=== PATIENT | male | born 1965 | race Caucasian/White ===

== ENCOUNTER → 2019-07-14 15:55 | Outpatient (BNVA) | payer BC, SELFPAY | PROVIDERS: Family Provider Family Medicine; Referring Provider Family Medicine; Visit Provider Otolaryngology | DX: J34.2 Deviated nasal septum (principal); J34.3 Hypertrophy of nasal turbinates; J30.9 Allergic rhinitis, unspecified; H91.90 Unspecified hearing loss, unspecified ear; F17.210 Nicotine dependence, cigarettes, uncomplicated | CPT/HCPCS: 99213; 99214 ==

== ENCOUNTER 2019-12-06 20:00 | Emergency (ER) | payer BC, SELFPAY ==
[2019-12-06 20:21] VITALS: BP 121/52; PULSE 79; RESP 18; TEMP 38.1; O2SAT 95
--- NOTE | 2019-12-06 20:46 | XR_ITS ---
WS: [id number] XR chest 1V portable [id number] REASON FOR EXAM: fever FINDINGS: The cardiac silhouette upper limits of normal. The lung rodriguez are normally aerated. No pneumonia, pleural effusion, pulmonary edema, or mass effect . The hilum is and apices are normal. No osseous abnormalities. XR/XR chest 1V portable [id number] IMPRESSION: Negative chest for acute findings.
[2019-12-06 20:49] VITALS: BP 128/75; PULSE 94; RESP 18; TEMP 39.2; O2SAT 96
[2019-12-06 20:53] LABS: Hematocrit 36.8 % (42.0-52.0); Hemoglobin 12.5 g/dL (11.7-16.6); Mean Corpuscular Hemoglobin 36.1 pg (28.0-34.0); Mean Corpuscular Volume 106.4 fL (80-94); Mean Platelet Volume 11.3 fL (7.4-10.4); Nucleated Red Blood Cells % 0 %; Platelet Count 68 10^3/cmm (130-400); Positive M 1; Red Blood Count 3.46 10^6/uL (4.1-5.3); Red Cell Distribution Width 13.1 % (12.1-15.1); White Blood Count 2.3 10^3/uL (4.0-10.0)
[2019-12-06] MEDS: sodium chloride 0.9% 1,000 ML 999 ML IV (20:53)
--- NOTE | 2019-12-06 21:04 | W.ED.FEVER ---
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 He presents with a significant fever, body aches, malaise, headache for the last 3 days or so. He appears to be worse today than the days prior. No known sick contacts he has had several ticks on in the last few days. Minimal cough, no shortness of breath. No known exposure to COVID patients. No urinary symptoms. He has chronic diarrhea, no belly pain or vomiting. He has been noted to have some right ear drainage that smells at times. MD elicited complaint: fever, malaise and weakness Onset (ago): day(s) (3) Exacerbating factors: nothing Relieving factors: nothing Associated symptoms: Reports chills, extremity pain, headache(s), myalgias and stiffness; Deny abdominal pain, chest pain, confusion, dysuria, nasal congestion or short of breath Review of Systems Const: Reports: chills Eyes: Denies: change in vision or blurry vision ENMT: Denies: nasal congestion Card: Denies: chest pain Resp: Denies: dyspnea, productive cough, non-productive cough or wheezing GI: Denies: abdominal pain : Denies: difficulty urinating, dysuria, urinary frequency, urinary urgency or hematuria Musc: Reports: extremity pain Skin/Breast: Denies: rash, pruritus or erythema Neuro: Reports: headache(s); Denies: confusion Psych: Denies: anxiety PFSH ED PFSH: Family History Mother Cancer CAD (coronary artery disease) Diabetes Sister Cancer Diabetes Brother Cancer Father CAD (coronary artery disease) Diabetes Social History Smoking and tobacco status: current every day smoker cigarettes Quit status (tobacco): has tried quititng Alcohol intake: current Alcohol intake frequency: holidays/special occasions only Physical Exam Const: COMMON NORMALS: alert GENERAL APPEARANCE: well developed ORIENTATION/CONSCIOUSNESS: Yes awake, Yes oriented to person, Yes oriented to place and Yes oriented to time HENMT: COMMON NORMALS: normocephalic, Normal external nose present and moist oral mucous membranes HEAD & SCALP: normocephalic FACE & SINUS: normal facial exam NOSE: Normal external nose present and No nasal discharge present EXTERNAL AUDITORY CANAL: Abnormal EAC present EAC laterality: left Details: edema and otic discharge MOUTH: tongue normal TEETH & GINGIVA: no abnormal tooth and associated gingiva THROAT: posterior oropharynx normal; no peritonsillar mass Eye: COMMON NORMALS: Equal, round and reactive pupils present, EOMs intact bilaterally and conjunctivae normal EYELID: eyelids normal CONJUNCTIVA: Yes conjunctivae normal PUPIL: Yes Equal, round and reactive pupils present Neck/C-Spine: COMMON NORMALS: full ROM GENERAL: No tracheal deviation CERVICAL SPINE: Yes normal cervical lordosis, No Cervical spine tenderness and No step off deformity Chest: COMMONS NORMALS: normal inspection of the chest CHEST: Yes Symmetrical chest wall rise and No tenderness Resp: COMMON NORMALS: clear to auscultation bilaterally EFFORT & INSPECTION: No tachypneic, No respiratory distress, No retractions, No uses accessory muscles and No tracheal deviation AUSCULTATION: clear to auscultation bilaterally, no rhonchi, no wheezes and lung sounds not diminished Cardio: COMMON NORMALS: regular rate and regular rhythm RATE: regular rate RHYTHM: regular rhythm HEART SOUNDS: no murmurs PERIPHERAL PULSES: radial pulses present GI: INSPECTION: No abdominal distension AUSCULTATION: No Hyperactive bowel sounds present and No Hypoactive bowel sounds present PALPATION: No Tenderness to palpation present (GI), No Guarding due to palpation present (GI) and No Rigid due to palpation PERCUSSION: no dullness to percussion and no tympanic to percussion Neuro: SENSORIUM/ORIENTATION: Yes alert, Yes oriented to person, Yes oriented to place and Yes oriented to time Psych: COMMON NORMALS: mental status grossly normal and speech normal SPEECH: Yes normal speech Skin: COMMON NORMALS: no rashes or lesions noted GENERAL SKIN EXAM: no rashes or lesions noted Course Vital Signs: Vital signs: Vital Signs Temperature 102.5 F H 12/06/19 20:49 Pulse Rate 78 12/06/19 22:44 Respiratory Rate 18 12/06/19 22:44 Blood Pressure 125/78 12/06/19 22:44 Pulse Oximetry 98 12/06/19 22:44 MDM - Fever MDM Narrative: Medical decision making narrative: 54-year-old male with tick bites, muscle aches, headache, malaise, leukopenia, thrombocytopenia, and elevated liver enzymes. All signs point tick fever. Tick panel has been sent. He will be started on doxycycline. He is feeling better after fever is broken, and is gotten some IV fluid. He is normotensive. His heart rates under 100. His oxygen saturations are fine. His urinalysis does not reveal infection, and his chest x-ray is negative. He will be precautionary light tested for coronavirus as it can cause leukopenia as well and will be allowed home, as the patient would like to go home. He was offered admission, but since he is able to take on fluids orally and take his doxycycline he should do well Lab Data: Labs: Lab Results 12/06/19 12/06/19 12/06/19 Range/Units 20:45 20:45 20:45 WBC 2.3 L (4.0-10.0) 10^3/ uL RBC 3.46 L (4.1-5.3) 10^6/u L Hgb 12.5 (11.7-16.6) g/dL Hct 36.8 L (42.0-52.0) % MCV 106.4 H (80-94) fL MCH 36.1 H (28.0-34.0) pg MCHC 34.0 (30.0-36.0) g/dL RDW 13.1 (12.1-15.1) % Plt Count 68 L (130-400) 10^3/c mm MPV 11.3 H (7.4-10.4) fL Nucleated RBC % (a uto) 0 % Total Counted 100 (0-100) Atypical Lymphs % 1.0 (0-5) % Absolute Neutrophi ls 1.6 (1.4-6.5) 10^3/c mm Segmented Neutroph ils 44 % Abs Segm Neuts (Ma n) 1.0 L (1.6-7.1) 10/cmm Band Neutrophils 26.0 % Abs Band Neuts (Ma n) 0.6 (0.0-1.2) 10^3/c mm Absolute Lymphocyt es 0.5 L (1.2-3.4) 10^3/c mm Lymphocytes (Manua l) 20 % Monocytes (Manual) 4.0 % Absolute Monocytes 0.1 (0.1-0.6) 10^3/c mm Eosinophils (Manua l) 1 % Absolute Eosinophi ls 0.0 (0.0-0.7) 10^3/c mm Basophils (Manual) 1.0 % Absolute Basophils 0.0 (0.0-0.2) 10^3/c mm Metamyelocytes 2.0 % Myelocytes 1.0 % Nucleated RBCs # 0.0 /100WBC Platelet Estimate Decreased (Normal) Macrocytosis 1+ H Sodium 131 L (136-145) mmol/L Potassium 3.6 (3.5-5.1) mmol/L Chloride 94 L (98-107) mmol/L Carbon Dioxide 23 (22-29) mmol/L Anion Gap 17.6 (5-19) BUN 14 (6-20) mg/dL Creatinine 1.2 (0.7-1.2) mg/dL GFR Calculation 62.6 L (90-130) mL/min Glucose 148 H (65-115) mg/dL Calculated Osmolal ity 271 L (285-295) mOsm/k g Lactate 1.6 (0.5-2.2) mmol/L Calcium 8.4 L (8.5-10.5) mg/dL Total Bilirubin 0.8 (0.15-1.2) mg/dL AST 182 H (0-40) U/L ALT 115 H (0-41) U/L Alkaline Phosphata se 260 H (40-130) IU/L C-Reactive Protein (0.0-4.9) mg/L Total Protein 6.8 (6.6-8.7) g/dL Albumin 3.7 (3.5-5.2) g/dL Globulin 3.1 (1.3-4.6) g/dL Urine Color (Yellow) Urine Appearance (CLEAR) Urine pH (5-7) Ur Specific Gravit y (1.005-1.030) Urine Protein (Negative) Urine Glucose (UA) (Normal) Urine Ketones (Negative) Urine Blood (Negative) Urine Nitrate (Negative) Urine Bilirubin (NEGATIVE) Urine Urobilinogen (Negative) mg/dL Ur Leukocyte Fallon ase (Negative) Urine RBC (0-2) /hpf Urine WBC (0-5) /hpf Ur Squamous Epith Cells (0-5) Urine Bacteria (NONE) Hyaline Casts Urine Mucus 12/06/19 12/06/19 Range/Units 20:45 20:45 WBC (4.0-10.0) 10^3/ uL RBC (4.1-5.3) 10^6/u L Hgb (11.7-16.6) g/dL Hct (42.0-52.0) % MCV (80-94) fL MCH (28.0-34.0) pg MCHC (30.0-36.0) g/dL RDW (12.1-15.1) % Plt Count (130-400) 10^3/c mm MPV (7.4-10.4) fL Nucleated RBC % (a uto) % Total Counted (0-100) Atypical Lymphs % (0-5) % Absolute Neutrophi ls (1.4-6.5) 10^3/c mm Segmented Neutroph ils % Abs Segm Neuts (Ma n) (1.6-7.1) 10/cmm Band Neutrophils % Abs Band Neuts (Ma n) (0.0-1.2) 10^3/c mm Absolute Lymphocyt es (1.2-3.4) 10^3/c mm Lymphocytes (Manua l) % Monocytes (Manual) % Absolute Monocytes (0.1-0.6) 10^3/c mm Eosinophils (Manua l) % Absolute Eosinophi ls (0.0-0.7) 10^3/c mm Basophils (Manual) % Absolute Basophils (0.0-0.2) 10^3/c mm Metamyelocytes % Myelocytes % Nucleated RBCs # /100WBC Platelet Estimate (Normal) Macrocytosis Sodium (136-145) mmol/L Potassium (3.5-5.1) mmol/L Chloride (98-107) mmol/L Carbon Dioxide (22-29) mmol/L Anion Gap (5-19) BUN (6-20) mg/dL Creatinine (0.7-1.2) mg/dL GFR Calculation (90-130) mL/min Glucose (65-115) mg/dL Calculated Osmolal ity (285-295) mOsm/k g Lactate (0.5-2.2) mmol/L Calcium (8.5-10.5) mg/dL Total Bilirubin (0.15-1.2) mg/dL AST (0-40) U/L ALT (0-41) U/L Alkaline Phosphata se (40-130) IU/L C-Reactive Protein 98.7 H (0.0-4.9) mg/L Total Protein (6.6-8.7) g/dL Albumin (3.5-5.2) g/dL Globulin (1.3-4.6) g/dL Urine Color Dark yellow (Yellow) Urine Appearance Clear (CLEAR) Urine pH 5 (5-7) Ur Specific Gravit y 1.015 (1.005-1.030) Urine Protein Trace (Negative) Urine Glucose (UA) Norm (Normal) Urine Ketones 1+ H (Negative) Urine Blood 2+ H (Negative) Urine Nitrate Negative (Negative) Urine Bilirubin 1+ H (NEGATIVE) Urine Urobilinogen 4 H (Negative) mg/dL Ur Leukocyte Fallon ase Negative (Negative) Urine RBC 0-4 H (0-2) /hpf Urine WBC 0-4 H (0-5) /hpf Ur Squamous Epith Cells 0-4 H (0-5) Urine Bacteria Trace (NONE) Hyaline Casts Rare Urine Mucus Trace Discharge Plan Discharge Patient Disposition: Home, Self-Care Clinical Impression: Ehrlichiosis Condition: Stable Prescriptions: New doxycycline hyclate 100 mg capsule 100 mg PO BID 10 Days Qty: 20 RF: 0 [place] 7.5-325 mg tablet 1 tab PO Q6H PRN (Reason: pain) Qty: 10 RF: 0 No Action ibuprofen 200 mg tablet 400 mg PO .at bedtime RF: 0 Discharge Orders: Discharge Order (Routine); Ordered 12/06/19 Ordered By: Ruddy Walls Discharge Diet: Usual diet Discharge Activity: Increase activity as tolerated Patient Instructions: Fever - Adult Activity Restrictions/Additional Instructions: Return for continued fevers despite 3-4 doses of antibiotics, worsening mental status, worsening pain, headache, neck ache, etc. Return for vomiting liquids or medications or other concerning symptoms. Discharge Date/Time: 12/06/19 22:46 Coding Level of Care Code ED Business Development Recruiter for Rosy Fwd Exam Comprehensive
[2019-12-06 21:06] LABS: C Reactive Protein 98.7 mg/L (0.0-4.9)
[2019-12-06 21:07] LABS: Alanine Aminotransferase 115 U/L (0-41); Albumin Level 3.7 g/dL (3.5-5.2); Alkaline Phosphatase 260 IU/L (40-130); Anion Gap 17.6 (5-19); Aspartate Amino Transferase 182 U/L (0-40); Blood Urea Nitrogen 14 mg/dL (6-20); Calcium 8.4 mg/dL (8.5-10.5); Carbon Dioxide 23 mmol/L (22-29); Chloride 94 mmol/L (98-107); Globulin 3.1 g/dL (1.3-4.6); Glomerular Filtration Rate 62.6 mL/min (90-130); Glucose 148 mg/dL (65-115); Osmolality Calculated 271 mOsm/kg (285-295); Potassium 3.6 mmol/L (3.5-5.1); Sodium 131 mmol/L (136-145); Total Bilirubin 0.8 mg/dL (0.15-1.2); Total Protein 6.8 g/dL (6.6-8.7)
[2019-12-06] MEDS: ketorolac 30 mg/mL INJ IVP (21:07)
[2019-12-06 21:08] LABS: Add Urine Microscopic? YES; Bilirubin Urine 1+ (NEGATIVE); Blood Urine 2+ (Negative); Glucose Urine UA Norm (Normal); Ketones Urine 1+ (Negative); Lactate (Lactic Acid level) 1.6 mmol/L (0.5-2.2); Leukocyte Esterase Urine Negative (Negative); Nitrate Urine Negative (Negative); Protein Urine Trace (Negative); Specific Gravity, Urine 1.015 (1.005-1.030); Urine Appearance Clear (CLEAR); Urine Color Dark Yellow (Yellow); Urobilinogen Urine 4 mg/dL (Negative); pH Urine 5 (5-7)
[2019-12-06] MEDS: acetaminophen 500 mg Tablet 1000 MG PO (21:08)
[2019-12-06 21:11] LABS: Bacteria Urine TRACE; Hyaline Casts Urine RARE; Mucus Urine TRACE; RBC Urine 0-4 /hpf (0-2); Squamous Epithelial Cell Urine 0-4 (0-5); WBC Urine 0-4 /hpf (0-5)
[2019-12-06 21:12] LABS: Add Urine Culture? No
[2019-12-06 21:27] LABS: Slide Review Slide Review Perform
[2019-12-06 21:29] LABS: Absolute Neutrophil 1.6 10^3/cmm (1.4-6.5); Band Neutrophils Absolute 0.6 10^3/cmm (0.0-1.2); Eosinophils 1 %; Lymphocytes 20 %; Monocytes Absolute 0.1 10^3/cmm (0.1-0.6); Platelet Estimate Decreased (Normal); Total Cells Counted 100 (0-100)
[2019-12-06 21:30] LABS: Lymphocytes Absolute 0.5 10^3/cmm (1.2-3.4); Macrocytosis 1+
[2019-12-06 21:32] LABS: Segmented Neutrophils 44 %
[2019-12-06] MEDS: doxycycline 100 mg Tablet PO (22:32)
[2019-12-06 22:44] VITALS: BP 125/78; PULSE 78; RESP 18; O2SAT 98
[2019-12-08 19:26] LABS: Quest SARS-CoV-2 RNA NOT DETECTED (NOT DETECTED)
[2019-12-09 13:47] LABS: Lyme AB Screen <0.90 index
--- NOTE | 2019-12-13 15:33 | PC.NURSE ---
Pt contacted and notified of negative COVID screening.
[2019-12-15 06:52] LABS: RMSF IGG NOT DETECTED; RMSF IGM NOT DETECTED
[2019-12-15 06:53] LABS: E. Chaffeensis AB IGG <1:64; E. Chaffeensis AB IGM <1:20
== END 2019-12-06 22:46 | disposition home or self-care (01) ==
PROVIDERS: Nurse Practitioner Family; Emergency Provider Emergency Medicine
DX: A77.40 Ehrlichiosis, unspecified (principal); F17.210 Nicotine dependence, cigarettes, uncomplicated
CPT/HCPCS: 12345; 36415; 71045; 80053; 81001; 83605; 85007; 85025; 86140; 86618; 86666; 86757; 87040; 87635; 96361; 96374; 96375; 99283; 99284; J1885; J7030

== ENCOUNTER 2021-08-01 09:05 | Outpatient (CLI) | payer OTHER, SELFPAY ==
--- NOTE | 2021-08-01 09:12 | XR_ITS ---
WS: [id number] XR hip LT 2-3V wo/w pel* [id number] REASON FOR EXAM: BILATERAL HIP PAIN FINDINGS: No fracture or focal bone lesion. Mild/moderate narrowing of the left hip joint space. Mild/moderate subchondral sclerosis and marginal osteophytosis of the acetabulum. XR/XR hip LT 2-3V wo/w pel* [id number] IMPRESSION: Moderate changes of osteoarthritis in the left hip as above.
== END 2021-08-01 09:06 | disposition home or self-care (01) ==
LOC: RAD 09:09
PROVIDERS: PCP Family Medicine; Visit Provider Family Medicine
DX: M25.551 Pain in right hip (principal); M25.552 Pain in left hip
CPT/HCPCS: 73502

== ENCOUNTER → 2021-09-06 14:16 | Outpatient (BNVA) | payer OTHER, SELFPAY | PROVIDERS: PCP Family Medicine; Referring Provider Family Medicine; Visit Provider Specialist | DX: M25.552 Pain in left hip (principal) | CPT/HCPCS: 73502 ==

== ENCOUNTER 2021-09-14 06:00 | Outpatient (RCR) | payer OTHER, SELFPAY | END 2021-09-21 23:59 | disposition home or self-care (01) | LOC: SPT 06:00 | PROVIDERS: PCP Family Medicine; Referring Provider Specialist; Visit Provider Specialist | DX: M25.552 Pain in left hip (principal) | CPT/HCPCS: 97110; 97161 ==

== ENCOUNTER 2021-09-22 06:00 | Outpatient (RCR) | payer OTHER, SELFPAY | END 2021-10-16 12:10 | disposition home or self-care (01) | LOC: SPT 06:00 | PROVIDERS: PCP Family Medicine; Referring Provider Specialist; Visit Provider Specialist | DX: M25.552 Pain in left hip (principal) | CPT/HCPCS: 97110 ==

== ENCOUNTER 2021-10-18 13:02 | Outpatient (CLI) | payer OTHER, SELFPAY ==
--- NOTE | 2021-10-18 13:30 | CT_ITS ---
WS: [id number] CT TEMPORAL BONES TECHNIQUE: Noncontrast CT of the temporal bones with coronal and sagittal reformatted images. CLINICAL INFORMATION: granulation tissue present in right ear canal COMPARISON: CT temporal June 19, 2019 DLP: 375.[address] scans at [facility] use at least one of these dose optimization techniques: automated e xposure control; mA and/or kV adjustment per patient size (includes targeted exams where dose is matc hed to clinical indication); or iterative reconstruction. FINDINGS: Paranasal sinuses are well aerated. Mild mucosal thickening in the ethmoid air cells. Sphen oid sinuses are well aerated. LEFT mastoid air cells are well aerated. Mild mucosal thickening RIGHT mastoid air cells with slight chronic sclerosis RIGHT mastoid. RIGHT: Mild mucosal thickening RIGHT mastoid air cells. Slight thickening RIGHT tympanic membrane. Tiny evan unt of soft tissue thickening in the external auditory canal contiguous with the tympanic membrane. T his is improved compared to June 19, 2019. No evidence of erosive changes. Normal scutum. Ossicle s are normal in appearance. Middle ear is well aerated. Normal tegmen tympani. Semicircular canals an d cochlea are normal in appearance. Prussak's space is normal. Normal inner ear structures. Normal ve stibular aqueduct. Facial nerve recess is normal. LEFT: Mastoid air cells are well aerated. Normal external auditory canal. Ossicles are normal in appearance . Middle ear is well aerated. Normal tegmen tympani. Semicircular canals and cochlea are normal in ap pearance. Prussak's space is normal. Normal inner ear structures. Normal vestibular aqueduct. Facial nerve recess is normal. Cavernous carotid calcification.. CT/CT temporal bone wo con* [id number] IMPRESSION: 1. Tiny amount of soft tissue thickening along the dorsal external auditory ca nal contiguous with the tympanic membrane likely inflammatory. No underlying er osive changes. This appears improved compared to 2019. 2. Mild mucosal thickening RIGHT mastoid tip. 3. LEFT mastoid air cells well aerated. 4. No other significant findings.
== END 2021-10-18 13:03 | disposition home or self-care (01) ==
LOC: RAD 13:05
PROVIDERS: PCP Family Medicine; Visit Provider Otolaryngology
DX: H70.11 Chronic mastoiditis, right ear (principal)
CPT/HCPCS: 70480

== ENCOUNTER 2022-02-23 06:31 | Day surgery (SDC) | payer OTHER, SELFPAY ==
[2022-02-23 06:49] VITALS: BP 140/75; PULSE 79; RESP 18; TEMP 36.4; O2SAT 94
[2022-02-23] MEDS: sodium chloride 0.9% 1,000 ML 30 ML IV (07:01)
--- NOTE | 2022-02-23 07:02 | P.ANESASSM_ITS ---
Pre-Anesthetic Assessment Height/Weight: Height 1.7 m Weight 87.09 kg Temp Pulse Resp BP Pulse Ox O2 Del Method 97.5 F L 79 18 140/75 94 02/23/22 06:49 02/23/22 06:49 02/23/22 06:49 02/23/22 06:49 02/23/22 06:49 02/23/22 06:49 Preop Diagnosis: screening Operation Date: 02/23/22 07:30 Proposed Procedures p Colonoscopy 29151,Z12.11(Not Applicable) - Dakota Perez MD Familial anesthetic complications: none Was Beta Ryan taken within 24 hours: N/A Was Clonidine taken within 24 hours: N/A Last intake: Intake Last Liquid Date 02/22/22 Last Liquid Time 00:00 Last Solid Date 02/21/22 Last Solid Time 20:30 Social Alcohol (1x month) and Tobacco Airway Submandibular: within normal limits Cervical ROM: Other (cervical plate in place) Mallampati: Class II Dentition: full Pulmonary Chronic Obstructive Pulmonary Disease CV/HEM Hypertension None reported Hepatic None reported GI IBS Metabolic None reported Musc/skel None reported Neuropsych None reported Anesthetic Plan ASA status: 2 Anesthesia: MAC Medications/Allergies Home Medications Medication Instructions Recorded Confirmed Last Taken Type lisinopril 10 1 tab PO DAILY 08/22/21 02/23/22 Unknown History mg-hydrochlorothiazide 12.5 mg tablet cephalexin 500 mg capsule 500 mg PO TID 7 days #21 caps 02/17/22 02/23/22 Unkn own Rx Allergies Allergy/AdvReac Type Severity Reaction Status Date / Time sulfacetamide Allergy Intermediate Hives Verified 02/17/22 15:39 Sulfa (Sulfonamide Allergy Unknown Verified 02/17/22 15:39 Antibiotics) Current Medications Generic Name Dose Route Start Last Admin Trade Name Freq PRN Reason Stop Dose Admin Sodium Chloride 1,000 mls @ 30 mls/hr 02/23/22 06:45 02/23/22 07:01 Sodium Chloride 0.9% IV 02/24/22 06:44 30 mls/hr .Q24H JAIRO Administration PFSH Anesthesia Medical History Ear pain Ehrlichiosis Hearing loss History of carpal tunnel syndrome Tinnitus Surgical History History of hip replacement History of placement of ear tubes entered in error History of spinal surgery History of surgery on upper extremity History of tonsillectomy and adenoidectomy Family History Mother Cancer CAD (coronary artery disease) Diabetes Sister Cancer Diabetes Brother Cancer Father CAD (coronary artery disease) Diabetes Social History Smoking and tobacco status: current every day smoker (half pack a day 20+) cigarettes Quit status (tobacco): has tried quititng Alcohol intake: current Alcohol intake frequency: holidays/special occasions only Data Anesthesia Cardiac Studies: No Data to Display
--- NOTE | 2022-02-23 07:32 | P.HP_ITS ---
Providers/Chief Complaint Primary Care Provider: Dakota Perez MD Chief Complaint: SCREENING History of Present Illness Yovani Pimentel is a 56 year old male who presents for a screening colonoscopy. Review of Systems General: Reports: 10 or more systems reviewed and unremarkable except in HPI and below Const: Denies: fever(s) Card: Denies: chest pain or irregular heart rhythm Resp: Denies: dyspnea Medications/Allergies Home Medications Medication Instructions Recorded Confirmed Last Taken Type lisinopril 10 1 tab PO DAILY 08/22/21 02/23/22 Unknown History mg-hydrochlorothiazide 12.5 mg tablet cephalexin 500 mg capsule 500 mg PO TID 7 days #21 caps 02/17/22 02/23/22 Unknown Rx Allergies Allergy/AdvReac Type Severity Reaction Status Date / Time sulfacetamide Allergy Intermediate Hives Verified 02/17/22 15:39 Sulfa (Sulfonamide Allergy Unknown Verified 02/17/22 15:39 Antibiotics) PFSH PFSH: Medical History Ear pain Ehrlichiosis Hearing loss History of carpal tunnel syndrome Tinnitus Surgical History History of hip replacement History of placement of ear tubes entered in error History of spinal surgery History of surgery on upper extremity History of tonsillectomy and adenoidectomy Family History Mother Cancer CAD (coronary artery disease) Diabetes Sister Cancer Diabetes Brother Cancer Father CAD (coronary artery disease) Diabetes Social History Smoking and tobacco status: current every day smoker (half pack a day 20+) cigarettes Quit status (tobacco): has tried quititng Alcohol intake: current Alcohol intake frequency: holidays/special occasions only Vital Signs Vitals Signs: Last Vital Signs Temp 97.5 F L 02/23/22 06:49 Pulse 79 02/23/22 06:49 Resp 18 02/23/22 06:49 BP 140/75 02/23/22 06:49 Pulse Ox 94 02/23/22 06:49 O2 Del Method 02/23/22 06:49 Weight: Weight last 48 hrs Weight 192 lb Physical Exam Const: COMMON NORMALS: no acute distress and patient oriented x3 GENERAL APPEARANCE: cooperative, comfortable and well developed HENMT: COMMON NORMALS: normocephalic and moist oral mucous membranes HEAD & SCALP: normocephalic Chest: COMMONS NORMALS: normal inspection of the chest Resp: COMMON NORMALS: normal respiratory effort and clear to auscultation bilaterally AUSCULTATION: clear to auscultation bilaterally Cardio: COMMON NORMALS: regular rate, regular rhythm, No gallops present (Cardio), No murmurs present (Cardio) and No rub (Cardio) RATE: regular rate RHYTHM: regular rhythm Extremity: COMMON NORMALS: normal to inspection Neuro: COMMON NORMALS: patient oriented x3 and no focal motor deficits Skin: COMMON NORMALS: no rashes or lesions noted GENERAL SKIN EXAM: no rashes or lesions noted A&P Assessment and plan (1) Colon cancer screening: We will proceed with the colonoscopy. we discussed the risk of bleeding, Perforation, and sedation. The patient has no further questions and wished to proceed , Status: Acute Coding Level of Care Code Acute Reheater Helper for Bhumi Fwd Diagnoses Colon cancer screening Z12.11
[2022-02-23 08:10] VITALS: BP 98/54; PULSE 68; RESP 12; TEMP 36.1; O2SAT 93
[2022-02-23 08:30] VITALS: BP 118/63; PULSE 63; RESP 16; O2SAT 92
--- NOTE | 2022-02-24 09:01 | ANE.PACU2 ---
Inpatient post-anesthesia follow up: Airway intact: Yes Vital signs: Temperature 97.0 F Pulse Rate 63 Respiratory Rate 16 Blood Pressure 118/63 Pulse Oximetry 92 Oxygen Delivery Me thod Room Air Oxygen Flow Rate 2 Fraction of Inspir ed Oxygen Hydration adequate: Yes Nausea and vomiting: No Pain level: 1 Mental status: Baseline
== END 2022-02-23 08:38 | disposition home or self-care (01) ==
PROVIDERS: PCP Family Medicine; Visit Provider Family Medicine
PROC: 0DJD8ZZ Inspection of Lower Intestinal Tract, Via Natural or Artificial Opening Endoscopic (ICD-10-PCS; CPT 45378; principal; 2022-02-23 07:30)
DX: Z12.11 Encounter for screening for malignant neoplasm of colon (principal); D12.2 Benign neoplasm of ascending colon; D12.8 Benign neoplasm of rectum; I10 Essential (primary) hypertension; J44.9 Chronic obstructive pulmonary disease, unspecified; F17.210 Nicotine dependence, cigarettes, uncomplicated; Z88.2 Allergy status to sulfonamides
CPT/HCPCS: 12345; 45380; 45385; 88305; J2704; J7030

== ENCOUNTER 2022-11-02 01:54 | Emergency (ER) | payer OTHER, SELFPAY ==
--- NOTE | 2022-11-02 02:07 | XRR_ITS ---
PROCEDURE INFORMATION: Exam: XR Chest Exam date and time: 11/02/2022 2:21 AM Age: 57 years old Clinical indication: Injury or trauma; Crushing; Patient HX: Fall, cough TECHNIQUE: Imaging protocol: Radiologic exam of the chest. Views: 1 view. COMPARISON: CR XR chest 1V portable [id number] 12/06/2019 8:56 PM FINDINGS: Lungs: Unremarkable. No consolidation. Faint ground-glass opacities seen at apical peripheries on CT do not have a radiographic correlate. Pleural spaces: Unremarkable. No pleural effusion. No pneumothorax. Heart/Mediastinum: Unremarkable. No cardiomegaly. Bones/joints: No acute findings. XR/XR chest 1V portable [id number] IMPRESSION: No acute findings. Faint ground-glass opacities seen at apical peripheries on CT do not have a radiographic correlate.
--- NOTE | 2022-11-02 02:07 | CTR_ITS ---
PROCEDURE INFORMATION: Exam: CT Head Without Contrast Exam date and time: 11/02/2022 2:24 AM Age: 57 years old Clinical indication: Injury or trauma; Fall; Blunt trauma (contusions or hematomas); Consciousness not specified TECHNIQUE: Imaging protocol: Computed tomography of the head without contrast. Radiation optimization: All CT scans at this facility use at least one of these dose optimization techniques: automated exposure control; mA and/or kV adjustment per patient size (includes targeted exams where dose is matched to clinical indication); or iterative reconstruction. REPORTING DATA: Count of CT and Cardiac NM exams in prior 12 months: This patient has received 0 known CTs and 0 known cardiac nuclear medicine studies in the 12 months prior to the current study. COMPARISON: CT temporal bone wo con* [id number] 10/18/2021 1:11 PM RADIATION DOSE METRICS: Total DLP (mGy-cm): 1221.54 FINDINGS: Brain: Normal. No hemorrhage. Unremarkable white matter. No mass effect. Cerebral ventricles: No ventriculomegaly. Paranasal sinuses: Visualized sinuses are unremarkable. No fluid levels. Mastoid air cells: Visualized mastoid air cells are well aerated. Bones/joints: No acute findings. Soft tissues: Unremarkable. CT/CT head wo con* [id number] IMPRESSION: No acute intracranial abnormality.
--- NOTE | 2022-11-02 02:07 | CTR_ITS ---
PROCEDURE INFORMATION: Exam: CT Cervical Spine Without Contrast Exam date and time: 11/02/2022 2:27 AM Age: 57 years old Clinical indication: Injury or trauma; Fall; Blunt trauma; Prior surgery; Surgery date: 6+ months; Surgery type: Metal plate cervical TECHNIQUE: Imaging protocol: Computed tomography of the cervical spine without contrast. Radiation optimization: All CT scans at this facility use at least one of these dose optimization techniques: automated exposure control; mA and/or kV adjustment per patient size (includes targeted exams where dose is matched to clinical indication); or iterative reconstruction. REPORTING DATA: Count of CT and Cardiac NM exams in prior 12 months: This patient has received 0 known CTs and 0 known cardiac nuclear medicine studies in the 12 months prior to the current study. COMPARISON: CT head wo con* [id number] 11/02/2022 2:24 AM RADIATION DOSE METRICS: Total DLP (mGy-cm): 295.64 FINDINGS: Bones/joints: Anterior fusion hardware in place at C6-C7. No findings of hardware disruption. No acute bony findings. Lungs: Mild ground-glass opacities at peripheral aspects of lung apices are favored to be infectious/inflammatory . Soft tissues: Unremarkable. CT/CT cervical spin wo con* [id number] IMPRESSION: No acute bony findings.
--- NOTE | 2022-11-02 02:08 | ECG_ITS ---
[facility] Test Date: 2022-11-02 Pat Name: Yovani Pimentel Department: Room: Gender: Male [employer]: : 1965 Requested By: Ricardo Rocha Order Number: [id number] Mack MD: Alexis Ferrari M.D. Measurements Intervals [place] Rate: 70 P: 52 OR: 164 QRS: 48 QRSD: 83 T: 41 QT: 385 QTc: 416 Interpretive Statements SINUS RHYTHM WITH SINUS ARRHYTHMIA No previous ECG available for comparison Electronically Signed On 11-02-2022 11:57:20 CDT by Alexis Ferrari M.D. [email or web address]
[2022-11-02 02:10] VITALS: BP 139/77; PULSE 65; RESP 15; TEMP 36.5; O2SAT 96; BMI 34.4
--- NOTE | 2022-11-02 02:13 | W.ED.FALL ---
HPI - Fall General: Chief Complaint: Syncope Stated Complaint: Fall, Head injury (Nose) Time Seen by Provider: 11/02/22 01:57 Source: patient Mode of arrival: ambulatory Limitations: no limitations History of Present Illness: 57-year-old male states he woke up this morning was having a coughing fit he states that while coughing he passed out. He states that when he passed out he did hit his head on the carpet. He has abrasion to his nose and forehead complains of forehead nose and neck pain. He denies any shortness of breath denies any chest pain at this time. Associated symptoms-after fall: Reports headache(s) and neck pain; Denies abdominal pain or chest pain Review of Systems Const: Denies: fever(s) or chills Eyes: Denies: blurry vision or eye discomfort ENMT: Denies: throat pain or dental pain Card: Reports: syncope; Denies: chest pain Resp: Reports: non-productive cough; Denies: dyspnea GI: Denies: abdominal pain, nausea, vomiting or diarrhea : Denies: dysuria Musc: Reports: neck pain; Denies: back pain Skin/Breast: Denies: rash Neuro: Reports: headache(s) All/Imm: Denies: urticaria PFSH ED PFSH: Medical History Cough in adult Ear pain Ehrlichiosis Hearing loss History of carpal tunnel syndrome Tinnitus Surgical History History of hip replacement History of placement of ear tubes entered in error History of spinal surgery History of surgery on upper extremity History of tonsillectomy and adenoidectomy Family History Mother Cancer CAD (coronary artery disease) Diabetes Sister Cancer Diabetes Brother Cancer Father CAD (coronary artery disease) Diabetes Social History Smoking and tobacco status: current every day smoker (half pack a day 20+) cigarettes Quit status (tobacco): has tried quititng Alcohol intake: current Alcohol intake frequency: holidays/special occasions only Substance/Drug Use: never Physical Exam Const: COMMON NORMALS: no acute distress, patient oriented x3 and healthy appearing HENMT: COMMON NORMALS: normocephalic; head/scalp not atraumatic HEAD & SCALP: normocephalic; not atraumatic OTHER: abrasion to forehead and nose Eye: COMMON NORMALS: Equal, round and reactive pupils present and EOMs intact bilaterally PUPIL: Yes Equal, round and reactive pupils present Neck/C-Spine: COMMON NORMALS: full ROM and supple OTHER: tenderness over posterior neck Chest: COMMONS NORMALS: normal inspection of the chest and normal palpation of entire chest wall Resp: COMMON NORMALS: normal respiratory effort, No retractions, No use of accessory muscles and clear to auscultation bilaterally AUSCULTATION: clear to auscultation bilaterally Cardio: COMMON NORMALS: regular rate, regular rhythm and No murmurs present (Cardio) RATE: regular rate RHYTHM: regular rhythm GI: COMMON NORMALS: Normal to inspection, nondistended, normoactive bowel sounds present, Soft to palpation, non-tender and no masses PALPATION: Yes Soft to palpation Extremity: COMMON NORMALS: normal to inspection and full ROM Neuro: COMMON NORMALS: patient oriented x3, moves all extremities and no focal motor deficits Psych: COMMON NORMALS: mental status grossly normal, Normal thought process present and cooperative THOUGHT PROCESS: Normal thought process present Skin: COMMON NORMALS: no rashes or lesions noted and no wounds GENERAL SKIN EXAM: no rashes or lesions noted Course Vital Signs: Vital signs: Vital Signs Temperature 97.7 F 11/02/22 02:10 Pulse Rate 65 11/02/22 02:10 Respiratory Rate 15 11/02/22 02:10 Blood Pressure 139/77 11/02/22 02:10 Pulse Oximetry 96 11/02/22 02:10 Oxygen Delivery Me thod Room Air 11/02/22 02:10 MDM - Fall Medical Decision Making RecentPatient presents here after a syncopal event likely from coughing is a closed head injury CT shows no fractures or major head injury. For 2 to 3 weeks he is currently on steroids and antibiotics from his PCP I did inform him that if it does not improve with that he should talk to his PCP about stopping his lisinopril he understands agrees to plan. Medical Records I reviewed the patient's medical records. Lab Data I reviewed the patient's lab results. 11/02/22 02:14 11/02/22 02:14 Radiology Impressions Cervical Spine CT 11/02/22 02:07 IMPRESSION: No acute bony findings. Chest X-Ray 11/02/22 02:07 IMPRESSION: No acute findings. Faint ground-glass opacities seen at apical peripheries on CT do not have a radiographic correlate. Head CT 11/02/22 02:07 IMPRESSION: No acute intracranial abnormality. Face CT 11/02/22 02:42 IMPRESSION: No acute bony findings. Laboratory Results WBC 9.7 10^3/uL (4.0-10.0) 11/02/22 02:14 RBC 3.65 10^6/uL (4.1-5.3) L 11/02/22 02:14 Hgb 13.2 g/dL (11.7-16.6) 11/02/22 02:14 Hct 39.5 % (42.0-52.0) L 11/02/22 02:14 MCV 108.2 fl (80-94) H 11/02/22 02:14 MCH 36.2 pg (28.0-34.0) H 11/02/22 02:14 MCHC 33.4 g/dL (30.0-36.0) 11/02/22 02:14 RDW 12.7 % (12.1-15.1) 11/02/22 02:14 Plt Count 169 10^3/cmm (130-400) 11/02/22 02:14 MPV 10.0 fL (7.4-10.4) 11/02/22 02:14 Neut % (Auto) 44.8 % 11/02/22 02:14 Lymph % (Auto) 43.4 % 11/02/22 02:14 [place] % (Auto) 8.4 % 11/02/22 02:14 Eos % (Auto) 2.5 % 11/02/22 02:14 Baso % (Auto) 0.4 % 11/02/22 02:14 Neut # (Auto) 4.35 10^3/uL (1.8-7.7) 11/02/22 02:14 Lymph # (Auto) 4.2 10^3/uL (0.8-4.8) 11/02/22 02:14 [place] # (Auto) 0.8 10^3/uL (0.2-0.9) 11/02/22 02:14 Eos # (Auto) 0.2 10^3/uL (0.0-0.8) 11/02/22 02:14 Baso # (Auto) 0.0 10^3/uL (0.0-0.1) 11/02/22 02:14 Nucleated RBC % (auto) 0 % 11/02/22 02:14 Nucleated RBCs # 0.0 /100WBC 11/02/22 02:14 Sodium 138 mmol/L (136-145) 11/02/22 02:14 Potassium 3.5 mmol/L (3.5-5.1) 11/02/22 02:14 Chloride 101 mmol/L (98-107) 11/02/22 02:14 Carbon Dioxide 22 mmol/L (22-29) 11/02/22 02:14 Anion Gap 18.5 (5-19) 11/02/22 02:14 BUN 21 mg/dL (6-20) H 11/02/22 02:14 Creatinine 1.2 mg/dL (0.7-1.2) 11/02/22 02:14 GFR Calculation 62.0 mL/min (90-130) L 11/02/22 02:14 Glucose 118 mg/dL (65-115) H 11/02/22 02:14 Calculated Osmolality 290 mOsm/kg (285-295) 11/02/22 02:14 Calcium 8.7 mg/dL (8.5-10.5) 11/02/22 02:14 Total Bilirubin 0.2 mg/dL (0.15-1.2) 11/02/22 02:14 AST 16 U/L (0-40) 11/02/22 02:14 ALT 17 U/L (0-41) 11/02/22 02:14 Alkaline Phosphatase 94 U/L (40-130) 11/02/22 02:14 Total Protein 6.8 g/dL (6.6-8.7) 11/02/22 02:14 Albumin 4.1 g/dL (3.5-5.2) 11/02/22 02:14 Globulin 2.7 g/dL (1.3-4.6) 11/02/22 02:14 EKG Data EKG 1: I personally reviewed and interpreted this EKG as follows: EKG interpretation date: 11/02/22 EKG interpretation time: 02:13 Interpretation: nsr hr [address] or t wave abnormalities qrs 83 qtc 406 Discharge Plan Discharge Patient Disposition: Home Clinical Impression: Syncope, Closed head injury, Cough Condition: Stable Prescriptions: No Action lisinopril-hydrochlorothiazide 10-12.5 mg tablet 1 tab PO DAILY ciprofloxacin-dexamethasone [Ciprodex] 0.3-0.1 % drops,suspension 4 drp otic (ear) BID Qty: 7.5 0RF Rx Instructions: Apply 4 drops into right ear for 5 minutes twice daily. azithromycin 250 mg tablet See Rx Instructions PO .COMPLEX Qty: 6 0RF Rx Instructions: For 250 mg dose pack: take 500 mg today (day 1), then 250 mg for 4 days (days 2-5) PO prednisone 20 mg tablet 40 mg PO DAILY Qty: 10 0RF Discharge Orders: Discharge ED (Routine); Ordered 11/02/22 Ordered By: Ricardo Rocha Referrals: Dakota Perez MD [Primary Care Provider] - 1-3 days Discharge Diet: Advance as tolerated Discharge Activity: Resume usual activity Patient Instructions: Syncope (ED), Head Injury (ED) Coding Level of Care Code ED Inhalation Therapy Aides Teacher for Rosy Wilson
[2022-11-02 02:26] LABS: Basophils % 0.4 %; Eosinophils # 0.2 10^3/uL (0.0-0.8); Eosinophils % 2.5 %; Hematocrit 39.5 % (42.0-52.0); Hemoglobin 13.2 g/dL (11.7-16.6); Lymphocytes # 4.2 10^3/uL (0.8-4.8); Lymphocytes % 43.4 %; Mean Corpuscular HGB Conc 33.4 g/dL (30.0-36.0); Mean Corpuscular Hemoglobin 36.2 pg (28.0-34.0); Mean Corpuscular Volume 108.2 fl (80-94); Monocytes # 0.8 10^3/uL (0.2-0.9); Monocytes % 8.4 %; Neutrophils # 4.35 10^3/uL (1.8-7.7); Neutrophils % 44.8 %; Nucleated Red Blood Cells % 0 %; Platelet Count 169 10^3/cmm (130-400); Red Blood Count 3.65 10^6/uL (4.1-5.3); Red Cell Distribution Width 12.7 % (12.1-15.1); White Blood Count 9.7 10^3/uL (4.0-10.0)
--- NOTE | 2022-11-02 02:42 | CTR_ITS ---
PROCEDURE INFORMATION: Exam: CT Maxillofacial Without Contrast Exam date and time: 11/02/2022 2:54 AM Age: 57 years old Clinical indication: Injury or trauma; Fall; Blunt trauma (contusions or hematomas); Forehead and nose TECHNIQUE: Imaging protocol: Computed tomography of the face without contrast. Radiation optimization: All CT scans at this facility use at least one of these dose optimization techniques: automated exposure control; mA and/or kV adjustment per patient size (includes targeted exams where dose is matched to clinical indication); or iterative reconstruction. REPORTING DATA: Count of CT and Cardiac NM exams in prior 12 months: This patient has received 0 known CTs and 0 known cardiac nuclear medicine studies in the 12 months prior to the current study. COMPARISON: CT head wo con* [id number] 11/02/2022 2:24 AM RADIATION DOSE METRICS: Total DLP (mGy-cm): 612.15 FINDINGS: Orbital cavities: Orbits are normal. Globes are unremarkable. Bones/joints: No acute fracture. Paranasal sinuses: Mild paranasal sinus mucosal thickening. No evident free fluid. Soft tissues: Mild soft tissue swelling upper nasal region. CT/CT facial bones wo con* [id number] IMPRESSION: No acute bony findings.
[2022-11-02 02:48] LABS: Alanine Aminotransferase 17 U/L (0-41); Albumin Level 4.1 g/dL (3.5-5.2); Alkaline Phosphatase 94 U/L (40-130); Anion Gap 18.5 (5-19); Aspartate Amino Transferase 16 U/L (0-40); Blood Urea Nitrogen 21 mg/dL (6-20); Calcium 8.7 mg/dL (8.5-10.5); Carbon Dioxide 22 mmol/L (22-29); Chloride 101 mmol/L (98-107); Creatinine Clr Calc Pharmacy 74.6025; Globulin 2.7 g/dL (1.3-4.6); Glucose 118 mg/dL (65-115); Osmolality Calculated 290 mOsm/kg (285-295); Potassium 3.5 mmol/L (3.5-5.1); Sodium 138 mmol/L (136-145); Total Bilirubin 0.2 mg/dL (0.15-1.2); Total Protein 6.8 g/dL (6.6-8.7)
[2022-11-02 03:30] VITALS: BP 139/77; PULSE 64; RESP 19; O2SAT 96
== END 2022-11-02 03:31 | disposition home or self-care (01) ==
PROVIDERS: Emergency Provider Emergency Medicine; PCP Family Medicine
DX: R55 Syncope and collapse (principal); S09.8XXA Other specified injuries of head, initial encounter; R05.9 Cough, unspecified; W18.39XA Other fall on same level, initial encounter; S00.31XA Abrasion of nose, initial encounter; S00.81XA Abrasion of other part of head, initial encounter; F17.210 Nicotine dependence, cigarettes, uncomplicated
CPT/HCPCS: 70450; 70486; 71045; 72125; 80053; 85025; 93005; 99285

== ENCOUNTER 2022-11-30 10:33 | Outpatient (CLI) | payer OTHER, SELFPAY ==
--- NOTE | 2022-11-30 10:48 | USCV_ITS ---
Yovani Pimentel Age: 57 Gender: M : 1965 Exam Date: 11/30/2022 11:33 Ordering Phys: Alise Brooks Technologist: CT Exam Location: [facility]_ Indication: syncope BP: 147 / 71 HR: 63 Rhythm: Sinus Technical Quality: Adequate MEASUREMENTS (Male / Female) Normal Values 2D ECHO LV Diastolic Diameter PLAX 4.5 cm 4.2 - 5.9 / 3.9 - 5.3 cm LV Systolic Diameter PLAX 2.5 cm IVS Diastolic Thickness 0.9 cm 0.6 - 1.0 / 0.6 - 0.9 cm IVS Systolic Thickness 1.5 cm LVPW Diastolic Thickness 1.1 cm 0.6 - 1.0 / 0.6 - 0.9 cm LVPW Systolic Thickness 2.3 cm LVOT Diameter 2.1 cm LV Ejection Fraction 2D Teich 74.6 % LV Ejection Fraction MOD 2C 65.2 % LV Ejection Fraction 2C AL 64.8 % LA Diameter 4.5 cm Aorta at Sinotubular Diameter 2.6 cm IVC Diameter 1.5 cm M-MODE Aortic Annulus Diameter 3.3 cm LA Ao Ratio MM 1.4 MV E Point Septal Separation 0.5 cm DOPPLER AV Peak Velocity 166.0 cm/s LVOT Peak Velocity 101.0 cm/s AV Area Cont Eq vti 2.3 cm squared AV Area Cont Eq pk 2.1 cm squared MV Peak Velocity 137.0 cm/s MV Area PHT 2.4 cm squared Mitral E to A Ratio 1.1 MV E' Velocity 50.5 cm/s Mitral E to MV E' Ratio 11.1 Mitral E to LV E' Lateral Ratio 11.8 Mitral E to LV E' Septal Ratio 10.4 TR Peak Velocity 104.2 cm/s TR Peak Gradient 4.3 mmHg TR Mean Velocity 84.7 cm/s TR Mean Gradient 3.1 mmHg TR Velocity Time Integral 20.8 cm TV Peak E Velocity 79.0 cm/s Right Atrial Pressure 3.0 mmHg Pulmonary Artery Systolic Pressu 7.3 mmHg PV Peak Velocity 109.0 cm/s FINDINGS Left Ventricle Normal left ventricular size, systolic function and wall thickness, with no regional wall motion abnormalities. Left ventricular ejection fraction is estimated at 65 %. Normal diastolic function. Right Ventricle Normal right ventricular size and systolic function. RVSP could not be calculated due to incomplete tricuspid regurgitation velocity profile. Right Atrium Normal right atrial size. Left Atrium Normal left atrial size. Mitral Valve Moderate mitral annular calcification. No mitral valve stenosis. No mitral valve regurgitation. Aortic Valve Structurally normal trileaflet aortic valve. No aortic valve stenosis. No aortic valve regurgitation. Tricuspid Valve Structurally normal tricuspid valve. No tricuspid valve stenosis. No significant tricuspid valve regurgitation. Pulmonic Valve Structurally normal pulmonic valve. No pulmonary valve stenosis. Trace pulmonary valve regurgitation. Pericardium No pericardial effusion. Aorta Normal size aortic root and proximal ascending aorta. IVC Normal IVC dimension with >50% respiratory change of the inferior vena cava. CONCLUSIONS 1. Normal left ventricular size, systolic function and wall thickness, with no regional wall motion abnormalities. Left ventricular ejection fraction is estimated at 65 %. Normal diastolic function. 2. Normal right ventricular size and systolic function. 3. No prior similar studies to compare. Vicky Holt MD (Electronically Signed) Final Date: 06 December 2022 12:59 S
== END 2022-11-30 10:34 | disposition home or self-care (01) ==
PROVIDERS: PCP Family Medicine; Visit Provider Physician Assistant
DX: R55 Syncope and collapse (principal)
CPT/HCPCS: 93306

== ENCOUNTER 2023-04-15 17:01 | Outpatient (CLI) | payer OTHER, SELFPAY ==
--- NOTE | 2023-04-15 17:30 | CT_ITS ---
WS: [id number] CT TEMPORAL BONES TECHNIQUE: Noncontrast CT of the temporal bones with coronal and sagittal reformatted images. CLINICAL INFORMATION: ear infections COMPARISON: CT temporal 10/18/2021 DLP: 325.[address] scans at [facility] use at least one of these dose optimization techniques: automated e xposure control; mA and/or kV adjustment per patient size (includes targeted exams where dose is matc hed to clinical indication); or iterative reconstruction. FINDINGS: RIGHT: Progressed partial opacification of the mastoid air cells worse at the mastoid tip. Soft tissu e thickening involving the middle ear with subtotal opacification. Thickening and retraction of the t ympanic membrane. Soft tissue thickening involves the epitympanum, mesotympanum and hypotympanum. Scu temitope appears intact. Ossicles appear intact. Trace soft tissue thickening in Prussak's space. Tegmen t ympani appears intact. Slight dehiscence of the RIGHT superior semicircular canal. Semicircular canals and cochlea are other johnson normal in appearance. Normal inner ear structures. Normal vestibular aqueduct. Facial nerve rece ss is normal. LEFT: Mastoid air cells are well aerated. Normal external auditory canal. Ossicles are normal in appearance . Middle ear is well aerated. Normal tegmen tympani. Semicircular canals and cochlea are normal in ap pearance. Prussak's space is normal. Normal inner ear structures. Normal vestibular aqueduct. Facial nerve recess is normal. Cavernous carotid calcification. Mild mucosal thickening in the ethmoid air cells. Normal posterior nasopharynx. IMPRESSION: 1. Progressed partial opacification of the RIGHT mastoid air cells with sclerotic and erosive change s. 2. Subtotal opacification of the RIGHT middle ear with retraction and thickening of the tympanic mem brane. Scutum appears intact. Ossicles appear intact. Findings are likely infectious or inflammatory. 3. Slight dehiscence of the RIGHT superior semicircular canal 4. LEFT mastoid air cells appear well aerated. 5. No other acute findings.
== END 2023-04-15 17:02 | disposition home or self-care (01) ==
PROVIDERS: PCP Family Medicine; Visit Provider Otolaryngology
DX: H70.11 Chronic mastoiditis, right ear (principal); H66.3X1 Other chronic suppurative otitis media, right ear; H69.81 Other specified disorders of Eustachian tube, right ear
CPT/HCPCS: 70480

== ENCOUNTER → 2023-06-05 08:02 | Outpatient (BNVA) | payer SELFPAY | PROVIDERS: PCP Family Medicine; Visit Provider Specialist | DX: M25.551 Pain in right hip (principal); Z96.641 Presence of right artificial hip joint | CPT/HCPCS: 73502 ==

== ENCOUNTER 2023-07-08 08:34 | Outpatient (CLI) | payer OTHER, SELFPAY ==
--- NOTE | 2023-07-08 09:30 | NM_ITS ---
WS: [id number] NUCLEAR MEDICINE 3 PHASE BONE SCAN TECHNIQUE: Blood flow, blood pool and delayed skeletal imaging obtained. Radiopharmaceutical: 24.6 Tc-99m MDP mCi IV Injection site: Antecubital Postinjection imaging delay: 3 hr CLINICAL INFORMATION: hx of right total hip arthroplasty, post sx complications COMPARISON: Radiograph 06/05/2023 FINDINGS: Prior postoperative changes RIGHT PRISCILLA. Normal blood flow and blood pool images. No evidence of osteom yelitis. No evidence of RIGHT PRISCILLA hardware loosening. Degenerative type uptake involving both AC joints. No other suspicious findings. Soft tissue contours: Normal. Kidneys: Normal. Other findings: None. IMPRESSION: 1. Prior postoperative changes RIGHT PRISCILLA. 2. No evidence of hardware loosening or osteomyelitis. 3. No other suspicious findings.
== END 2023-07-08 08:35 | disposition home or self-care (01) ==
LOC: RAD 08:35
PROVIDERS: PCP Family Medicine; Visit Provider Specialist
DX: Z98.1 Arthrodesis status (principal)
CPT/HCPCS: 78315; A9561

== ENCOUNTER 2023-07-19 16:39 | Outpatient (CLI) | payer OTHER, SELFPAY ==
[2023-07-19 17:53] LABS: Basophils % 0.3 %; Eosinophils # 0.3 10^3/uL (0.0-0.8); Eosinophils % 4.7 %; Hematocrit 39.6 % (37-53); Lymphocytes # 2.7 10^3/uL (0.8-4.8); Lymphocytes % 40.6 %; Mean Corpuscular HGB Conc 34.6 g/dL (30-55); Mean Corpuscular Hemoglobin 37.3 pg (27-33); Mean Corpuscular Volume 107.9 fl (82-101); Mean Platelet Volume 10.5 fL (7.4-10.4); Monocytes # 0.5 10^3/uL (0.2-0.9); Monocytes % 7.8 %; Neutrophils # 3.09 10^3/uL (1.8-7.7); Neutrophils % 46.4 %; Nucleated Red Blood Cells % 0 %; Platelet Count 153 10^3/cmm (157-399); Red Blood Count 3.67 10^6/uL (3.85-5.65); Red Cell Distribution Width 12.3 % (12.1-15.1); White Blood Count 6.65 10^3/uL (3.29-11.43)
[2023-07-19 18:08] LABS: Alanine Aminotransferase 19 U/L (0-41); Albumin Level 4.1 g/dL (3.5-5.2); Alkaline Phosphatase 99 U/L (40-130); Anion Gap 15.4 (5-19); Aspartate Amino Transferase 19 U/L (0-40); Blood Urea Nitrogen 17 mg/dL (6-20); Calcium 8.5 mg/dL (8.5-10.5); Carbon Dioxide 25 mmol/L (22-29); Chloride 99 mmol/L (98-107); Globulin 3.1 g/dL (1.3-4.6); Glomerular Filtration Rate 76.5 mL/min (90-130); Glucose 99 mg/dL (65-115); Osmolality Calculated 284 mOsm/kg (285-295); Potassium 3.4 mmol/L (3.5-5.1); Sodium 136 mmol/L (136-145); Total Bilirubin 0.2 mg/dL (0.15-1.2); Total Protein 7.2 g/dL (6.6-8.7)
== END 2023-07-19 16:40 | disposition home or self-care (01) ==
PROVIDERS: PCP Family Medicine; Visit Provider Specialist
DX: Z01.810 Encounter for preprocedural cardiovascular examination (principal); Z01.818 Encounter for other preprocedural examination
CPT/HCPCS: 80053; 85025

== ENCOUNTER → 2023-08-05 10:04 | Outpatient (BNVA) | payer OTHER, SELFPAY | PROVIDERS: PCP Family Medicine; Referring Provider Family Medicine; Visit Provider Specialist | DX: M54.50 Low back pain, unspecified (principal); Z96.641 Presence of right artificial hip joint | CPT/HCPCS: 72110 ==

== ENCOUNTER → 2024-08-11 12:07 | Outpatient (BNVA) | payer OTHER, SELFPAY | PROVIDERS: PCP Family Medicine; Visit Provider Orthopaedic Surgery | DX: Z01.818 Encounter for other preprocedural examination (principal); S69.92XD Unspecified injury of left wrist, hand and finger(s), subsequent encounter; X58.XXXD Exposure to other specified factors, subsequent encounter | CPT/HCPCS: 36415; 80053; 81003; 85025 ==

== ENCOUNTER 2024-08-19 05:43 | Day surgery (SDC) | payer OTHER, SELFPAY ==
[2024-08-19] VITALS (10 sets, daily range): BP systolic 102–161; BP diastolic 59–76; PULSE 62–76; RESP 15–23; TEMP 36.3–37; O2SAT 91–97; BMI 30.4
[2024-08-19] MEDS: sodium chloride 0.9% 1,000 ML 30 ML IV (06:21)
--- NOTE | 2024-08-19 06:44 | ANES.PREANE2 ---
Pre-Anesthetic Assessment Height/Weight: Height 1.7 m Weight 87.997 kg Temp Pulse Resp BP Pulse Ox O2 Del Method 98.6 F 76 18 161/72 95 Room Air 08/19/24 06:11 08/19/24 06:11 08/19/24 06:11 08/19/24 06:11 08/19/24 06:11 08/19/24 06:12 Preop Diagnosis: painful, deformed PIP joint left long finger Operation Date: 08/19/24 07:00 Proposed Procedures p LONG FINGER AMPUTATION(Left) - Marcel Wilks MD Familial anesthetic complications: None Was Beta Ryan taken within 24 hours: N/A Was Clonidine taken within 24 hours: N/A Last intake: Intake Last Liquid Date 08/18/24 Last Liquid Time 23:30 Last Solid Date 08/18/24 Last Solid Time 19:00 Social Alcohol and Tobacco Exam alert, oriented x 3, clear to auscultation bilaterally and regular rate & rhythm Airway Mallampati: Class III Dentition: full CV/HEM Hypertension HX PVST Anesthetic Plan ASA status: 2 Anesthesia: MAC Other Pertinent Information alpha gal Medications/Allergies Home Medications ?Medication ?Instructions ?Recorded ?Confirmed ?Last Taken ?Type lisinopril 10 1 tab PO DAILY 08/22/21 08/19/24 08/18/24 History mg-hydrochlorothiazide 12.5 mg tablet loratadine 10 mg tablet (Allergy 10 mg PO DAILY PRN Allergic 08/11/24 08/18/24 Unknown History Relief (loratadine)) Symptoms metaxalone 800 mg tablet 800 mg PO 1XD 08/18/24 08/18/24 08/17/24 History Allergies Allergy/AdvReac Type Severity Reaction Status Date / Time sulfacetamide Allergy Intermediate Hives Verified 08/19/24 06:03 Alpha-Gal Allergy Unknown Verified 08/19/24 06:03 ([id number]-Gpnzp-8,3-Gala amoxicillin (From Augmentin) Allergy ADR-Vomitin Verified 08/19/24 06:03 g clavulanic acid (From Allergy ADR-Vomitin Verified 08/19/24 06:03 Augmentin) g Sulfa (Sulfonamide Allergy Unknown Verified 08/19/24 06:03 Antibiotics) Current Medications Generic Name Dose Route Start Last Admin Trade Name Freq PRN Reason Stop Dose Admin Sodium Chloride 1,000 mls @ 30 mls/hr 08/19/24 06:00 08/19/24 06:21 Sodium Chloride 0.9% IV 08/20/24 05:59 30 mls/hr .Q24H JAIRO Administration PFSH Anesthesia Medical History Cough in adult Hearing loss Ehrlichiosis Tinnitus Ear pain History of carpal tunnel syndrome Surgical History History of surgery on upper extremity History of tonsillectomy and adenoidectomy History of spinal surgery History of placement of ear tubes entered in error History of hip replacement Family History Mother Cancer CAD (coronary artery disease) Diabetes Sister Cancer Diabetes Brother Cancer Father CAD (coronary artery disease) Diabetes Social History Smoking and tobacco/nicotine status: current every day tobacco/nicotine user (0.5-1 pack) cigarettes Quit status (tobacco/nicotine): has tried quititng Alcohol intake: current Alcohol intake frequency: holidays/special occasions only Substance/Drug Use: never Data Anesthesia Cardiac Studies: Echocardiogram 11/30/22 Cardiac Event Monitor 12/13/22
[2024-08-19] MEDS: clindamycin 600 MG/50 ML PREMIX 100 MG IV (07:00)
[2024-08-19] MEDS: BUPivacaine 0.5% INJ 30 mL INJECTION (07:45)
--- NOTE | 2024-08-19 08:05 | P.HP_ITS ---
Same Day Surgery H&P Indication for Procedure/HPI DATE OF PROCEDURE: August 19, 2024 CHIEF COMPLAINT/INDICATIONFOR SURGICAL PROCEDURE: Painful deformed left long finger PREOP DIAGNOSIS: painful, deformed PIP joint left long finger PLANNED PROCEDURE: Operation Date: 08/19/24 07:00 Proposed Procedures p LONG FINGER AMPUTATION(Left) - Marcel Wilks MD No interval change in health status since original H&P ROS As per H&P Medications/Allergies* Home Medications ?Medication ?Instructions ?Recorded ?Confirmed ?Type lisinopril 10 1 tab PO DAILY 08/22/2107/26 History mg-hydrochlorothiazide 12.5 mg tablet loratadine 10 mg tablet (Allergy 10 mg PO DAILY PRN Al lergic 08/11/24 08/18/24 History Relief (loratadine)) Symptoms metaxalone 800 mg tablet 800 mg PO 1XD 08/18/2408/18 History Allergies/Adverse Reactions Allergy/AdvReac Type Severity Reaction Status Date / Time sulfacetamide Allergy Intermediate Hives Verified 08/19/24 06:03 Alpha-Gal Allergy Unknown Verified 08/19/24 06:03 (Qnnrpqcjm-Oqzfj-0,3-Gala amoxicillin (From Augmentin) Allergy ADR-Vomitin Verified 08/19/24 06:03 g clavulanic acid (From Allergy ADR-Vomitin Verified 08/19/24 06:03 Augmentin) g Sulfa (Sulfonamide Allergy Unknown Verified 08/19/24 06:03 Antibiotics) Current Medications: Generic Name Dose Route Start Last Admin Trade Name Freq PRN Reason Stop Dose Admin Sodium Chloride 1,000 mls @ 30 mls/hr 08/19/24 06:00 08/19/24 06:21 Sodium Chloride 0.9% IV 08/20/24 05:59 30 mls/hr .Q24H JAIRO Administration Pertinent History/Comorbid Conditions* Medical History (Updated 08/06/24 @ 14:47 by Marcel Wilks MD) Cough in adult Hearing loss Ehrlichiosis Tinnitus Ear pain History of carpal tunnel syndrome Surgical History (Updated 06/09/23 @ 13:52 by Eryn Webster MD) History of surgery on upper extremity History of tonsillectomy and adenoidectomy History of spinal surgery History of placement of ear tubes entered in error History of hip replacement Family History (Updated 07/13/19 @ 08:25 by Shauna Mukherjee LPN) Diabetes Mother Sister Father CAD (coronary artery disease) Mother Father Cancer Mother Sister Brother Social History Smoking and tobacco/nicotine status: current every day tobacco/nicotine user (0.5-1 pack) cigarettes Quit status (tobacco/nicotine): has tried quititng Alcohol intake: current Alcohol intake frequency: holidays/special occasions only Substance/Drug Use: never Pertinent Exam Findings alert and operative site marked No interval change in mental status, heart and lung status since original H&P Recommendations Surgery/Procedure today Other Plans: Plan at this time is to proceed with surgical intervention for amputation of distal portion left long finger Coding Level of Care Code Acute Code for [facility] Fwd
--- NOTE | 2024-08-19 08:41 | P.OP_ITS ---
Operative Report Date of procedure: August 19, 2024 Surgeon: Marcel Wilks MD Procedure: Preop diagnosis: Deformed painful left long finger PIP joint Postop diagnosis: Same Procedure: Amputation of left long finger through PIP joint (proximal interphalangeal joint) Surgeon: Marcel Wilks MD Anesthesia: General Tourniquet time: 36 minutes at 250 mmHg EBL: 5 cc Complications: None Indications: Yovani is a 59-year-old white male came in with complaints of a painful left long finger. He has had multiple injuries to it and recently slammed it in the car door. It is quite swollen and deformed. There is rotational malalignment distally and the PIP joint is quite bulbous and tender. Patient had an injury years ago with nearly amputating the finger which was then surgically repaired. But since that time has had minimal motion in the PIP joint increased pain, and difficulty with his work activities. Patient initially requested this finger to be removed. However after examination and x- rays it is felt patient would benefit from an amputation through the PIP joint rather than the entire finger. 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 All risk benefits treatment alternatives were discussed with he and his and they are agreeable to this at this time. Procedure: After obtaining the consent patient was taken to the operating room on his [facility] and general anesthetic was administered. Once good anesthesia was achieved pneumatic cuffs placed around proximal left arm left arm was prepped and draped usual fashion. After surgical timeout hand and arm were exsanguinated with the Esmarch wrap. Pneumatic cuff was inflated to 250 mmHg. At this point a fishmouth incision was made starting on the radial aspect just proximal to the PIP joint extending distally and then going up and over the top about mid mid phalanx. Similar fashion skin flap was raised on the palmar surface also. Sharp dissection was taken down to the tendinous structures. Extensor tendon and flexor tendon were carefully dissected away in order to protect them. Eventually they were divided about mid middle phalanx region. Soft tissues were held back over the distal proximal phalanx which had quite a bit of deformity secondary to old injuries. Using a rongeur distal portion of the proximal phalanx was sculpted down to a nice rounded area. At this point using 3-0 nylon weave stitch the 2 ends of the tendons, extensor tendon to flexor tendon, were sewn together over the end of the proximal phalanx. This was then supplemented with [id number] sutures. At this point skin flaps were then fashioned and trimmed with small tenotomy scissors to be able to close over the distal end of the proximal phalanx. Using 3-0 Vicryl interrupted sutures skin wound was closed completely. Area was cleaned and dried dressed with Xeroform gauze, sterile gauze dressing, sterile Kerlix wrap and an Jonathon wrap for compression. Pneumatic cuff was deflated at this point after 36 minutes total tourniquet time. Patient was then awakened transferred to cover room stable condition
[2024-08-19] MEDS: HYDROcodone-APAP 7.5-325 mg/15 mL UDC PO (09:11)
--- NOTE | 2024-08-19 09:20 | ANE.PACU2 ---
Inpatient post-anesthesia follow up: Airway intact: Yes Vital signs: Temperature 97.5 F Pulse Rate 63 Respiratory Rate 16 Blood Pressure 129/63 Pulse Oximetry 96 Oxygen Delivery Me thod Room Air Oxygen Flow Rate Fraction of Inspir ed Oxygen Hydration adequate: Yes Nausea and vomiting: No Pain level: 1 Mental status: Baseline
== END 2024-08-19 09:19 | disposition home or self-care (01) ==
PROVIDERS: PCP Family Medicine; Visit Provider Orthopaedic Surgery
PROC: (CPT 26951; principal; 2024-08-19 07:00)
DX: I96 Gangrene, not elsewhere classified (principal); M20.092 Other deformity of left finger(s); I10 Essential (primary) hypertension; F17.210 Nicotine dependence, cigarettes, uncomplicated; Z79.899 Other long term (current) drug therapy; Z88.2 Allergy status to sulfonamides; Z88.0 Allergy status to penicillin; Z88.8 Allergy status to other drugs, medicaments and biological substances; H91.90 Unspecified hearing loss, unspecified ear
CPT/HCPCS: 26951; 88305; 88311; 88312; J2250; J2405; J2704; J3010; J3490; J7030

== ENCOUNTER 2024-09-16 15:56 | Outpatient (RCR) | payer OTHER, SELFPAY | END 2024-09-21 23:59 | disposition home or self-care (01) | LOC: SOT 15:56 | PROVIDERS: Visit Provider Orthopaedic Surgery | DX: Z89.022 Acquired absence of left finger(s) (principal) | CPT/HCPCS: 97165 ==